=== PATIENT | female | born 1990 | race African-American/Black ===

== ENCOUNTER 2019-04-08 12:43 | Emergency (ER) | payer BC, OTHER ==
[~2019-04-08] VITALS: Ht 172.7 cm; Wt 106.6 kg
[~2019-04-08 12:43] MED LIST: CETIRIZINE HCL10 MG PO; FLEXERIL PO; FLONASE 0.05%50 MCG NASAL; IBUPROFEN 800800 MG PO; MOTRIN 600 MG600 M1 OR; NORCO 5-325 TA1 EACH PO; PROMETHAZINE-C120 ML PO; SPRINTEC1 EACH PO; ZANTAC 150MG T150 MG PO; ZPAK PO; denies any meds
[2019-04-08] MEDS ORDERED: AMOXICILLIN 50500 MG PO (15:11)
[2019-04-08] MEDS ORDERED: PROAIR HFA8.5 GM INH (15:11)
[2019-04-08] MEDS ORDERED: TESSALON PERLE100 MG PO (15:11)
[2019-04-08 15:30] VITALS: BP 128/89
--- NOTE | 2019-04-08 16:49 | EKG ---
[place] [address] [place] [address] ELECTROCARDIOGRAM REPORT Name: CLEMENT IYER Rosie Room #: [facility]aki#: [id number] Admission: 04/08/19 Attend Phys: Discharge: 04/08/19 Date of : 88 Report #: [id number] THIS REPORT FOR: //name// [facility] ED Test Date: 2019-04-08 Test Time: 12:59:44 Pat Name: CLEMENT IYER Department: Room: Gender: F [employer] Assistant: [facility] : 1990 Requested By: Geoff Pompa Order Number: [id number] MD: Harley Balderas Measurements Intervals [place] Rate: 87 P: 57 TN: 151 QRS: 14 QRSD: 86 T: 117 QT: 349 QTc: 420 Interpretive Statements Sinus rhythm Nonspecific T wave abnormality No previous ECG available for comparison Electronically Signed On 04-08-2019 16:48:50 [employer]END[employer] by Harley Balderas [email or web address] <ELECTRONICALLY SIGNED> By: Harley Balderas MD, [facility] 04/08/19 [id number] [id number] Harley Balderas MD, FACC /EPI
== END 2019-04-08 15:40 | disposition home or self-care (01) ==
LOC: ER 12:43
DX: J20.8 Acute bronchitis due to other specified organisms (principal); G47.30 Sleep apnea, unspecified; F17.210 Nicotine dependence, cigarettes, uncomplicated; Z88.5 Allergy status to narcotic agent